=== PATIENT | male | born 1970 | race Caucasian/White ===

== ENCOUNTER 2022-06-19 13:18 | Inpatient (IN) ==
[2022-06-19] MEDS ORDERED: Senna TAB 8.6 mg TAB PO PRN (16:39)
[2022-06-19] MEDS ORDERED: Naloxone Nasal Spray 4 MG/0.1 ML NASAL.SPR INTRANASAL PRN (16:52)
[2022-06-19] MEDS: HYDROcodone/ACETAMIN 5/325 mg TAB PO PRN ×2 (17:20→21:55)
[2022-06-20] MEDS: HYDROcodone/ACETAMIN 5/325 mg TAB PO PRN ×6 (01:45→22:50)
[2022-06-20 06:55] LABS: ABS Basophils 0.1 10^3/ul (0-0.2); ABS Eosinophils 0.2 10^3/ul (0-0.6); ABS Lymphocytes 1.6 10^3/ul (1.0-4.8); ABS Monocytes 0.7 10^3/ul (0-0.8); ABS Neutrophils 4.9 10^3/ul (1.5-7.7); Eosinophil % 2.7 %; Hematocrit 32 % (42-52); Hemoglobin 10.7 g/dL (14.0-18.0); Lymphocyte % 21.3 %; Mean Corpuscular HGB Conc 33 g/dL (31-36); Mean Corpuscular Hemoglobin 29 pg (27-31); Mean Corpuscular Volume 87 fL (80-94); Mean Platelet Volume 6.7 fL (7.4-10.4); Platelet Count 408 10^3/uL (150-450); Red Blood Count 3.73 10^6 /uL (4.18-5.48); Red Cell Distribution Width 15 % (10-15); White Blood Count 7.4 10^3/uL (3.5-10.8)
[2022-06-20 07:20] LABS: Albumin 3.4 g/dL (3.2-5.2); Albumin/Globulin Ratio 1.2 (1-3); Calcium 10.6 mg/dL (8.6-10.3); Creatinine, Serum 0.75 mg/dL (0.67-1.17); Globulin 2.9 g/dL (2-4); Potassium 4.5 mmol/L (3.5-5.0); Total Bilirubin 0.5 mg/dL (0.2-1.0); Total Protein 6.3 g/dL (6.4-8.9); eGFR CKD-EPI 107.9 (>60)
[2022-06-20] MEDS: Enoxaparin 40 MG/0.4 ML SYR SUBCUT SCH (12:25)
[2022-06-20] MEDS: Senna TAB 8.6 mg TAB PO SCH (22:49)
[2022-06-21] MEDS: HYDROcodone/ACETAMIN 5/325 mg TAB PO PRN ×5 (02:56→20:51)
[2022-06-21] MEDS ORDERED: Ondansetron ODT 4 mg TAB 4 MG TAB PO ONE (10:00)
[2022-06-21] MEDS: Enoxaparin 40 MG/0.4 ML SYR SUBCUT SCH (11:31)
[2022-06-21] MEDS ORDERED: Ondansetron ODT 4 mg TAB 4 MG TAB PO PRN (12:08)
[2022-06-21] MEDS: Senna TAB 8.6 mg TAB PO SCH (20:51)
[2022-06-22] MEDS: HYDROcodone/ACETAMIN 5/325 mg TAB PO PRN ×6 (02:08→22:15)
[2022-06-22] MEDS: Enoxaparin 40 MG/0.4 ML SYR SUBCUT SCH (11:44)
[2022-06-22] MEDS: Senna TAB 8.6 mg TAB PO SCH (20:06)
[2022-06-23] MEDS: HYDROcodone/ACETAMIN 5/325 mg TAB PO PRN ×4 (02:19→17:53)
[2022-06-23] MEDS: Enoxaparin 40 MG/0.4 ML SYR SUBCUT SCH (11:48)
[2022-06-23] MEDS: Polyethylene Glycol 3350 17 GM PACKET PO PRN (19:02)
[2022-06-23] MEDS: Senna TAB 8.6 mg TAB PO SCH (20:47)
[2022-06-24] MEDS: HYDROcodone/ACETAMIN 5/325 mg TAB PO PRN ×6 (00:28→21:13)
[2022-06-24] MEDS: Enoxaparin 40 MG/0.4 ML SYR SUBCUT SCH (12:47)
[2022-06-24] MEDS: Polyethylene Glycol 3350 17 GM PACKET PO PRN (20:02)
[2022-06-24] MEDS: Senna TAB 8.6 mg TAB PO SCH (21:04)
[2022-06-25] MEDS: HYDROcodone/ACETAMIN 5/325 mg TAB PO PRN ×4 (01:25→22:15)
[2022-06-25] MEDS: Enoxaparin 40 MG/0.4 ML SYR SUBCUT SCH (12:23)
[2022-06-25] MEDS: Polyethylene Glycol 3350 17 GM PACKET PO PRN (18:46)
[2022-06-25] MEDS: Senna TAB 8.6 mg TAB PO SCH (22:16)
[2022-06-26] MEDS: HYDROcodone/ACETAMIN 5/325 mg TAB PO PRN ×4 (02:20→20:13)
[2022-06-26] MEDS: Polyethylene Glycol 3350 17 GM PACKET PO PRN (07:45)
[2022-06-26] MEDS: Enoxaparin 40 MG/0.4 ML SYR SUBCUT SCH (12:33)
[2022-06-26] MEDS: Senna TAB 8.6 mg TAB PO SCH (20:12)
[2022-06-27] MEDS: HYDROcodone/ACETAMIN 5/325 mg TAB PO PRN ×6 (00:35→23:42)
[2022-06-27 10:38] LABS: ABS Eosinophils 0.2 10^3/ul (0-0.6); ABS Lymphocytes 1.6 10^3/ul (1.0-4.8); ABS Monocytes 0.6 10^3/ul (0-0.8); ABS Neutrophils 3.9 10^3/ul (1.5-7.7); Eosinophil % 2.7 %; Hematocrit 36 % (42-52); Lymphocyte % 25.1 %; Mean Corpuscular HGB Conc 33 g/dL (31-36); Mean Corpuscular Hemoglobin 28 pg (27-31); Mean Corpuscular Volume 86 fL (80-94); Mean Platelet Volume 6.4 fL (7.4-10.4); Platelet Count 418 10^3/uL (150-450); Red Blood Count 4.22 10^6 /uL (4.18-5.48); Red Cell Distribution Width 15 % (10-15); White Blood Count 6.3 10^3/uL (3.5-10.8)
[2022-06-27 11:13] LABS: Albumin/Globulin Ratio 1.2 (1-3); Calcium 10.7 mg/dL (8.6-10.3); Creatinine, Serum 0.87 mg/dL (0.67-1.17); Globulin 3.4 g/dL (2-4); Potassium 4.3 mmol/L (3.5-5.0); Total Bilirubin 0.5 mg/dL (0.2-1.0); Total Protein 7.4 g/dL (6.4-8.9); eGFR CKD-EPI 103.2 (>60)
[2022-06-27] MEDS: Enoxaparin 40 MG/0.4 ML SYR SUBCUT SCH (11:48)
[2022-06-27] MEDS: Polyethylene Glycol 3350 17 GM PACKET PO PRN (13:35)
[2022-06-27] MEDS: Senna TAB 8.6 mg TAB PO SCH (20:24)
[2022-06-28] MEDS: HYDROcodone/ACETAMIN 5/325 mg TAB PO PRN ×5 (04:00→20:54)
[2022-06-28] MEDS: Enoxaparin 40 MG/0.4 ML SYR SUBCUT SCH (12:22)
[2022-06-28] MEDS: Senna TAB 8.6 mg TAB PO SCH (20:54)
[2022-06-29] MEDS: HYDROcodone/ACETAMIN 5/325 mg TAB PO PRN ×6 (01:03→23:34)
[2022-06-29] MEDS: Enoxaparin 40 MG/0.4 ML SYR SUBCUT SCH (11:01)
[2022-06-29] MEDS: Polyethylene Glycol 3350 17 GM PACKET PO PRN (20:06)
[2022-06-29] MEDS: Senna TAB 8.6 mg TAB PO SCH (20:08)
[2022-06-30] MEDS: HYDROcodone/ACETAMIN 5/325 mg TAB PO PRN ×4 (03:37→20:09)
[2022-06-30] MEDS: Enoxaparin 40 MG/0.4 ML SYR SUBCUT SCH (11:39)
[2022-06-30] MEDS: Senna TAB 8.6 mg TAB PO SCH (20:08)
[2022-07-01] MEDS: HYDROcodone/ACETAMIN 5/325 mg TAB PO PRN ×4 (01:03→13:19)
[2022-07-01 05:06] VITALS: BP 103/69
[2022-07-01] MEDS: Enoxaparin 40 MG/0.4 ML SYR SUBCUT SCH (13:11)
== END 2022-07-01 15:45 | disposition home health service (06) | DRG 860 ==
LOC: PMRU 15:57
PROVIDERS: ADMIT Physical Medicine & Rehabilitation; ATTEND Physical Medicine & Rehabilitation